=== PATIENT | male | born 1965 | race Caucasian/White ===

== ENCOUNTER → 2023-06-16 10:49 | Outpatient (REF) | payer OTHER, SELFPAY | LOC: RAD 10:49 | PROVIDERS: ATTENDING PHYSICIAN Internal Medicine | DX: R10.9 Unspecified abdominal pain (principal); Z85.71 Personal history of Hodgkin lymphoma; J92.9 Pleural plaque without asbestos | CPT/HCPCS: 71260; 74177; Q9967 ==

== ENCOUNTER → 2023-07-28 13:25 | Outpatient (REF) | payer OTHER, SELFPAY | LOC: PAVMRI 13:25 | PROVIDERS: ATTENDING PHYSICIAN Internal Medicine | DX: K76.89 Other specified diseases of liver (principal); Z85.71 Personal history of Hodgkin lymphoma | CPT/HCPCS: 74183; A9575 ==

== ENCOUNTER → 2024-01-29 12:33 | Outpatient (REF) | payer OTHER, SELFPAY | LOC: RAD 12:33 | PROVIDERS: FAMILY PHYSICIAN Internal Medicine | DX: M06.9 Rheumatoid arthritis, unspecified (principal); Z79.899 Other long term (current) drug therapy; M25.572 Pain in left ankle and joints of left foot | CPT/HCPCS: 73610 ==

== ENCOUNTER → 2024-04-13 12:32 | Outpatient (REF) | payer OTHER, SELFPAY | LOC: PAVMRI 12:32 | PROVIDERS: ATTENDING PHYSICIAN Internal Medicine | DX: K86.2 Cyst of pancreas (principal) | CPT/HCPCS: 74183; A9575 ==